=== PATIENT | female | born 2000 ===

== ENCOUNTER 2021-12-25 22:44 | Emergency (ER) | payer OTHER ==
[~2021-12-25] VITALS: Ht 157.5 cm; Wt 59.0 kg
[2021-12-26] MEDS ORDERED: SODIUM CHLORIDE 0.9% 1,000 ML IV ONE (00:45)
[2021-12-26 01:54] LABS: EOSINOPHILS % 5.8 % (0.0-5.0); HEMOGLOBIN. 12.7 g/dL (12.0-16.0); LYMPHOCYTES % 27.1 % (20.0-50.0); MEAN CORPUSCULAR HEMOGLOBIN 28.2 pg (28.0-32.0); MEAN CORPUSCULAR VOLUME 86.4 fL (81.0-99.0); MEAN PLATELET VOLUME 10.3 fl (7.4-10.4); NEUTROPHILS % 60.1 % (40.0-76.0); PLATELET 161 x1000/uL (130-400); RED BLOOD CELL COUNT 4.51 mill/uL (4.2-5.4)
[2021-12-26 01:59] LABS: CHLORIDE 109 mEq/L (98-107)
[2021-12-26 02:09] LABS: B-HCG QUANTITATIVE < 1 mIU/mL (<3)
[2021-12-26 03:05] VITALS: BP 105/68
== END 2021-12-26 03:08 | disposition home or self-care (01) ==
LOC: ER 22:44
DX: K92.0 Hematemesis (principal); I42.9 Cardiomyopathy, unspecified
CPT/HCPCS: 36415; 71045; 80053; 83690; 83880; 84484; 84702; 85025; 99284; J7030